=== PATIENT | female | born 1965 | race Caucasian/White ===

== ENCOUNTER 2016-06-13 15:57 | Emergency (ER) | payer OTHER ==
[2016-06-13] MEDS ORDERED: MECLIZINE HCL 25 MG TABLET ONE (16:29)
[2016-06-13] MEDS ORDERED: DIAZEPAM 5 MG TABLET ONE (16:40)
== END 2016-06-13 17:50 | disposition home or self-care (01) ==
LOC: ED 15:57
DX: R42 Dizziness and giddiness (principal); R00.0 Tachycardia, unspecified; I25.2 Old myocardial infarction; J45.909 Unspecified asthma, uncomplicated; F17.210 Nicotine dependence, cigarettes, uncomplicated
CPT/HCPCS: 99283 ×2; A9270 ×2